=== PATIENT | male | born 1945 | race American Indian/Alaskan Native ===

== ENCOUNTER 2017-01-23 07:11 | Day surgery (SDC) | payer MEDICARE, OTHER ==
[~2017-01-23 07:11] MED LIST: ANCEF/STERILE WATER 2 GM/20 ML 2 GM/20 ML SYRINGE IV NR; NACL 0.9% 1000 ML 1,000 ML IV SCH
[2017-01-23 08:23] LABS: Hematocrit 22.9 % (35.5-45.6); Hemoglobin 7.8 gm/dl (11.8-15.2); Mean Corpuscular HGB Conc 34 % (32-34); Mean Corpuscular Hemoglobin 34 pg (28-32); Mean Corpuscular Volume 102 fl (84-94); Red Blood Count 2.26 M/mm3 (3.65-5.03); Red Cell Distribution Width 14.9 % (13.2-15.2); White Blood Count 4.8 K/mm3 (4.5-11.0)
[2017-01-23 08:27] LABS: Platelet Count 72 K/mm3 (140-440)
[2017-01-23 08:44] LABS: Calcium 9.1 mg/dL (8.4-10.2); Chloride 95.4 mmol/L (98-107)
[2017-01-23 09:53] LABS: Anisocytosis 1+; Basophils % (Manual) 0 % (0.0-1.8); Blastocytes % (Manual) 0 %; Diff Status Complete; Large Platelets Few; Platelet Estimate Appears Decreased
[2017-01-23] MEDS ORDERED: NACL 0.9% 250ML 250 ML ONE (10:26)
[2017-01-23] MEDS ORDERED: ANCEF/STERILE WATER 2 GM/20 ML 2 GM/20 ML SYRINGE IV ONE (10:26)
[2017-01-23] MEDS ORDERED: HEPARIN 10,000 UNITS/10 ML ONE (10:26)
[2017-01-23] MEDS ORDERED: HEPARIN/NS 5000 UNIT/500ML(CATH LAB) 1,000 ML IR ONE (10:26)
[2017-01-23] MEDS ORDERED: XYLOCAINE 2% INFILTRATI ONE (10:26)
[2017-01-23] MEDS: SUBLIMAZE ONE ×3 (10:41→11:33)
[2017-01-23] MEDS: VERSED ONE ×3 (10:41→11:51)
[2017-01-23] MEDS ORDERED: NACL 0.9% 1000 ML 1,000 ML ONE (10:55)
[2017-01-23] MEDS ORDERED: NITROGLYCERIN SYRINGE 3 ML ONE (11:52)
[2017-01-23] MEDS ORDERED: SUBLIMAZE ONE (11:53)
--- NOTE | 2017-01-23 12:22 | Short Stay Summary ---
Short Stay Documentation Date of service: 01/23/17 Narrative H&P: See H&P - History H&P: obtained from office - Allergies and Medications Current Medications: Allergies spironolactone Allergy (Verified 01/23/17 07:47) muscle cramps Home Medications Medication Instructions Recorded Confirmed Last Taken Type Albuterol Sulfate [Ventolin HFA] 2 puff IH Q4H PRN 01/23/17 01/23/17 01/22/17 History Aspirin EC [Aspirin Enteric Coated 81 mg PO DAILY 01/23/17 01/23/17 01/22/17 History TAB] Calcium Acetate [Calcium Acetate] 667 mg PO DAILY 01/23/17 01/23/17 01/22/17 History Carvedilol [Coreg] 12.5 mg PO DAILY 01/23/17 01/23/17 01/22/17 History Cinacalcet [Sensipar] 30 mg PO DAILY 01/23/17 01/23/17 01/22/17 History Esomeprazole Magnesium [NexIUM] 20 mg PO DAILY 01/23/17 01/23/17 01/22/17 History Gabapentin [Neurontin] 100 mg PO TID 01/23/17 01/23/17 01/22/17 History HYDROcodone/APAP 7.5-325 [[place] 1 tab PO Q6HR PRN 01/23/17 01/23/17 01/22/17 History 7.5-325 mg TAB] Hydroxyzine HCl [Hydroxyzine HCl] 50 mg PO DAILY 01/23/17 01/23/17 01/22/17 History Rosuvastatin (Nf) [Crestor] 20 mg PO DAILY 01/23/17 01/23/17 01/22/17 History Vit B Comp&C/Folic Acid/Vit D3 1 tab PO DAILY 01/23/17 01/23/17 01/22/17 History [Dialyvite 800 Plus D Wafer] traMADol [Ultram 50 MG tab] 50 mg PO DAILY 01/23/17 01/23/17 01/22/17 History Active Medications Clopidogrel Bisulfate (Plavix) 300 mg PO ONCE ONE Stop: 01/23/17 12:14 Cefazolin Sodium (Ancef/Sterile Water 2 Gm/20 Ml) 2 gm in 20 mls @ 80 mls/hr IV PREOP NR PRN Reason: Protocol Stop: 01/23/17 23:59 Last Admin: 01/23/17 10:44 Dose: 20 mls - Brief post op/procedure progress note Date of procedure: 01/23/17 Pre-op diagnosis: PVD with Left Foot Rest Pain Post-op diagnosis: same Procedure: 1. Ultrasound-Guided Access Right Common Femoral Artery 2. Diagnostic Aortogram with Left Lower Chest and Runoff (No Previous Films for Comparison) 3. Atherectomy with Angioplasty of Left SFA and Popliteal Arteries with 2.4/ 3.4 [employer] Atherectomy Catheter 6 x 200 Balloon 4. Angioplasty of Proximal Superficial Femoral Artery with 6 x 100 Lutonix Drug -Coated Balloon 5. Angioplasty of Left Posterior Tibial Artery with 3 x 150 Balloon 6. Angioplasty of Left Anterior Tibial Artery with Tapered 2.5-2.0 x 210 Balloon 7. Closer Right Femoral Arteriotomy with ProGlide Device 8. Radiologic Supervision with Interpretation Anesthesia: local, other (i.v. Sedation) Surgeon: KACY PELAYO Estimated blood loss: minimal Pathology: none Condition: stable - Disposition Condition at discharge: Good Disposition: [id number] TO HOME OR SELFCARE Short Stay Discharge Plan Activity: other (no strenuous activity for 48 hours) Wound: remove dressing (24 hours) Follow up with: KACY PELAYO MD [Staff Physician] - 14 Days Prescriptions: Clopidogrel [Plavix] 75 mg PO QDAY #30 tablet
--- NOTE | 2017-01-23 12:25 | Operative Report ---
Operative Report Operative Report: Date of Procedure: 01/23/2017 Pre-operative Diagnosis: PVD with Left Foot Rest Pain Post-operative Diagnosis: Same Procedure(s): 1. Ultrasound-Guided Access Right Common Femoral Artery 2. Diagnostic Aortogram with Left Lower Chest and Runoff (No Previous Films for Comparison) 3. Atherectomy with Angioplasty of Left SFA and Popliteal Arteries with 2.4/ 3.4 [employer] Atherectomy Catheter 6 x 200 Balloon 4. Angioplasty of Proximal Superficial Femoral Artery with 6 x 100 Lutonix Drug -Coated Balloon 5. Angioplasty of Left Posterior Tibial Artery with 3 x 150 Balloon 6. Angioplasty of Left Anterior Tibial Artery with Tapered 2.5-2.0 x 210 Balloon 7. Closer Right Femoral Arteriotomy with ProGlide Device 8. Radiologic Supervision with Interpretation Surgeon: Romeo Casas M.D. [employer] Solder Leveler: Vee Anesthesia: Local with IV sedation EBL: Minimal Counts: Correct Complications: None Condition: Stable Specimen: None Indication: The patient is a 71-year-old male with a history of peripheral vascular disease and a complaint of one month of rest pain. He had a duplex performed at an outside facility that suggested occlusive disease in the SFA and popliteal arteries as well as his tibial arteries. He was set up for diagnostic arteriogram and possible intervention. He was given the risk, benefits, alternative procedures and consented to procedure. Angiographic Findings: Aortogram demonstrated the aorta was widely patent without evidence of aneurysmal disease. Bilateral common iliac arteries as well as external iliac arteries and hypogastric arteries were widely patent. The left lower extremity runoff demonstrated the common femoral artery is widely patent. The profunda artery was widely patent. There was approximately 80% stenosis of the origin of the SFA over several centimeters. The remainder of the SFA was diffusely diseased with multiple segments of stenosis and approximately 99% stenosis short segment of the distal SFA. The popliteal artery was diffusely diseased with multiple segmental stenosis and was occluded in the below-knee pop just proximal to the trifurcation. All tibial vessels were occluded at their origins as well as the tibial peroneal trunk with reconstitution of the posterior tibial artery in the midcalf. The peroneal artery reconstituted in the mid calf. The anterior tibial artery was not identified however there was retrograde filling of the dorsalis pedis artery through the posterior tibial artery. After intervention the SFA was patent with 2 segments of nonflow limiting dissection. The popliteal artery was widely patent as well as a widely patent posterior tibial artery. The anterior tibial artery was patent however quite sluggish with multiple areas of dissection. Description of Procedure: The patient was brought into the physical laboratory assistant and laid in supine position. After he was adequately sedated his right groin was prepped and draped in normal sterile fashion. Ultrasound was used to identify the right common femoral artery and the overlying skin and soft tissue was anesthetized with lidocaine. A small stab incision was made and a hemostat was used to dissect bluntly down to the anterior surface of the right common femoral artery. Micropuncture technique was used to ultrasound And the right common femoral artery and a 0.035 Bentson wire was advanced into the aorta under fluoroscopy. A 5 [place] sheath was then placed by Seldinger technique. An Omni Flush catheter was advanced into the aorta and aortogram performed. The Bentson wire and Omni Flush catheter were advanced up and over the bifurcation and the left lower sternal runoff was performed with the previously described findings. I advanced a Bentson wire into the mid SFA and then exchanged to 5 [place] sheath for a 7 [place] 65 cm destination sheath by Seldinger technique. At this point the patient was systemically heparinized. I then used a vertebral catheter and V 18 wire to traverse the lesions in the SFA and popliteal artery. I changed the 18 wire for a 0.035 advantage wire and Navicross catheter and was able to advance the wire and catheter into the posterior tibial artery which was confirmed by arteriogram. I exchanged the advantage wire for a 0.014 Spartacore wire. I then used the 2.4/3.4 [employer] Atherectomy Catheter to perform atherectomy of the lesions in the SFA and popliteal arteries with both blades down and blades up. I then performed balloon angioplasty of the entire popliteal and SFA arteries using a 6 x 200 balloon. There was a flow limiting dissection of the proximal SFA however the remainder of the SFA and popliteal arteries were widely patent. I treated the dissection of the proximal SFA with a 6 x 100 Lutonix Drug-Coated Balloon. The dissection remained however it appeared more adhered to the wall it was no longer flow limiting. I then performed balloon angioplasty of the posterior tibial artery with a 3 x 150 balloon will result of a patent artery with less than 10% residual stenosis. I then used a narrow cross catheter and advantage wire was able to traverse the occluded anterior tibial artery and reentered the dorsalis pedis artery which was confirmed by arteriogram. I exchanged the advantage wire for a 0.014 Spartacore wire and then perform angioplasty with tapered 2.5-2.0 x 210 Balloon. The artery was patent however the flow was quite sluggish. I injected nitroglycerin was did not improve the flow however I felt that this was adequate to resolve his rest pain. I pulled the sheath back into the right external iliac artery and performed an arteriogram that demonstrated sheath was well above the bifurcation so I used the ProGlide closure device to close the arteriotomy. The patient tolerated the procedure well. All sponge, needle, and instrument counts were correct. The patient was taken to the recovery area in stable condition.
[2017-01-23] MEDS ORDERED: PLAVIX ONE (12:28)
[2017-01-23] MEDS ORDERED: PLAVIX PO ONE (13:00)
[2017-01-23 13:59] VITALS: BP 142/58
--- NOTE | 2017-01-24 09:25 | Vascular Lab Report ---
MISCELLANEOUS VESSEL IDENTIFICATION: COMMENTS ON THE SCAN: The right common femoral artery was identified and under real-time ultrasound guidance was cannulated. IMPRESSION: Successful ultrasound guided arterial cannulation.
[2017-01-24] MEDS ORDERED: PLAVIX PO SCH (10:00)
== END 2017-01-23 13:45 | disposition home or self-care (01) ==
LOC: OPU 07:11
PROVIDERS: ATTEND Surgery Vascular Surgery
DX: I70.222 Atherosclerosis of native arteries of extremities with rest pain, left leg (principal); N18.6 End stage renal disease; K21.9 Gastro-esophageal reflux disease without esophagitis; E78.5 Hyperlipidemia, unspecified; D64.9 Anemia, unspecified; F17.200 Nicotine dependence, unspecified, uncomplicated; Z99.2 Dependence on renal dialysis; Z88.8 Allergy status to other drugs, medicaments and biological substances; Z98.890 Other specified postprocedural states; Z93.3 Colostomy status; Z94.84 Stem cells transplant status; Z95.1 Presence of aortocoronary bypass graft; Z72.89 Other problems related to lifestyle; Z79.82 Long term (current) use of aspirin; Z79.899 Other long term (current) drug therapy; Z83.3 Family history of diabetes mellitus; Z80.9 Family history of malignant neoplasm, unspecified; Z82.49 Family history of ischemic heart disease and other diseases of the circulatory system
CPT/HCPCS: 36415; 37225; 37228; 37232; 75625; 75710; 76937; 80048; 85007; 85025; C1724; C1725; C1760; C1769; C1887; C2623; J0690; J1644; J2250; J3010; J7030; J7050; Q9967